=== PATIENT | female | born 1975 | race Caucasian/White ===

== ENCOUNTER 2016-10-10 11:14 | Day surgery (SDC) | payer BC ==
[~2016-10-10 11:14] MED LIST: B COMPLEX1 EAC1 PO; BIOTIN10000 MC1 PO; CARAFATE1 GM/10 M1 PO; MULTIVITAMINS1 EAC6 PO; NEXIUM40 M1 PO; NORCO 5-325 TA1 EACH PO; PERCOCET 5-3251 EACH PO; PROTONIX40 M2 PO; ROXICODONE5 M2 PO; TYLENOL ARTHRI650 M1 PO; VITAMIN D31000 UNI3 PO; WELLBUTRIN XL150 M1 PO; ZOFRAN ODT4 MG PO; ZOLOFT100 M1 PO
[2017-01-29] MEDS ORDERED: NORCO 5-325 TA1 EACH PO (11:07)
[2017-01-29] MEDS ORDERED: ZOFRAN4 M2 PO (11:09)
== END 2016-10-10 18:00 ==
LOC: SHSB 11:14 → PACU 14:26 → SHSB 16:20
PROC: 0DBW4ZX Excision of Peritoneum, Percutaneous Endoscopic Approach, Diagnostic (ICD-10-PCS; principal; 2016-10-10)
PROC: 0U5B4ZZ Destruction of Endometrium, Percutaneous Endoscopic Approach (ICD-10-PCS; 2016-10-10)
DX: N80.3 Endometriosis of pelvic peritoneum (principal); N80.4 Endometriosis of rectovaginal septum and vagina; K66.0 Peritoneal adhesions (postprocedural) (postinfection); N83.292 Other ovarian cyst, left side; E66.9 Obesity, unspecified; E11.9 Type 2 diabetes mellitus without complications; F41.9 Anxiety disorder, unspecified; F32.9 Major depressive disorder, single episode, unspecified; K21.9 Gastro-esophageal reflux disease without esophagitis; K44.9 Diaphragmatic hernia without obstruction or gangrene; Z79.899 Other long term (current) drug therapy; Z88.1 Allergy status to other antibiotic agents; Z91.048 Other nonmedicinal substance allergy status; Z90.49 Acquired absence of other specified parts of digestive tract; Z90.710 Acquired absence of both cervix and uterus; Z98.84 Bariatric surgery status; Z98.890 Other specified postprocedural states
CPT/HCPCS: J0131; J1170; J2270; J3010; J7030